=== PATIENT | female | born 1960 | race Caucasian/White ===

== ENCOUNTER 2016-12-08 09:34 | Emergency (ER) | payer OTHER ==
[~2016-12-08] VITALS: Ht 157.5 cm; Wt 59.0 kg
[2016-12-08] MEDS ORDERED: LIDOCAINE VISCOUS 2% 15ML UD PO ONE (10:15)
[2016-12-08] MEDS ORDERED: ALUM & MAG HYDROX-SIMETH LIQ(MAALOX) 30 ML PO ONE (10:15)
[2016-12-08] MEDS ORDERED: DONNATAL 5ml ORAL Elix (BELLADONNA ALK-PHENOBARB) PO ONE (10:15)
[2016-12-08 10:27] VITALS: BP 141/83
[2016-12-08 10:37] LABS: Basophils # (auto) 0.1 uL; Basophils % (auto) 0.8 % (0.0-2.0); Eosinophils # (auto) 0.1 uL; Eosinophils % (auto) 0.5 % (0.0-7.0); Hematocrit 36.5 % (36.0-46.0); Hemoglobin 12.5 g/dL (12.2-16.2); Lymphocytes # (auto) 2.2 uL; Lymphocytes % (auto) 20.5 % (10.0-50.0); Mean Corpuscular Hemoglobin 31.5 pg (28.0-32.0); Mean Corpuscular Hgb Conc. 34.3 g/dL (32.0-36.0); Monocytes # (auto) 0.6 uL; Monocytes % (auto) 5.7 % (0.0-12.0); Neutrophils # (auto) 7.7 uL; Neutrophils % (auto) 72.5 % (37.0-80.0); Nucleated Red Blood Cells % 0.1 %; Platelet Count (auto) 425 10^3/uL (140-450); Red Blood Cells 3.97 10^6/uL (4.0-5.20); Red Cell Distribution Width 14.4 % (11.8-14.3); White Blood Cell 10.6 10^3/uL (4.4-10.8)
[2016-12-08 10:39] LABS: Urine Bacteria NONE SEEN /hpf (None Seen); Urine Blood 1+ /uL (Negative); Urine Mucus FEW (None Seen); Urine Specific Gravity 1.007 (1.001-1.035); Urine WBC 1 /hpf (0 - 5)
[2016-12-08 10:46] LABS: Amylase 33 U/L (25-115); Lipase 46 U/L (73-393)
[2016-12-08 11:06] LABS: Alanine Aminotransferase 22 U/L (13-56); Albumin 3.9 g/dL (3.4-5.0); Alkaline Phosphatase 138 U/L (45-117); Anion Gap 10 (5-15); Aspartate Aminotransferase 16 U/L (15-37); BUN/Creatinine Ratio 9.4; Bilirubin, Total 0.4 mg/dL (0.2-1.0); Blood Urea Nitrogen 6 mg/dL (7-18); Calcium 9.2 mg/dL (8.5-10.1); Carbon Dioxide 22 mmol/L (21-32); Chloride 102 mmol/L (98-107); GFR African American 123 mL/min; GFR Non-African American 102 mL/min; Glucose 127 mg/dL (74-106); Magnesium 2.1 mg/dL (1.6-2.6); Potassium 3.4 mmol/L (3.5-5.1); Sodium 134 mmol/L (136-145); Total Protein 8.3 g/dL (6.4-8.2)
[2016-12-08] MEDS ORDERED: POTASSIUM CHL 10% (20 MEQ/15ML) 15ml ORAL SOLN PO ONE (11:30)
== END 2016-12-08 14:16 | disposition home or self-care (01) ==
LOC: ER 09:34
DX: K29.70 Gastritis, unspecified, without bleeding (principal); K21.9 Gastro-esophageal reflux disease without esophagitis; E11.9 Type 2 diabetes mellitus without complications; Z87.442 Personal history of urinary calculi
CPT/HCPCS: 36415; 80053; 81001; 82150; 83690; 83735; 84484; 85025; 93005

== ENCOUNTER 2016-12-19 16:54 | Emergency (ER) | payer OTHER ==
[~2016-12-19] VITALS: Ht 165.1 cm; Wt 59.0 kg
[2016-12-19 18:37] LABS: Basophils # (auto) 0.1 uL; Basophils % (auto) 0.6 % (0.0-2.0); Eosinophils # (auto) 0 uL; Eosinophils % (auto) 0.3 % (0.0-7.0); Hematocrit 34.6 % (36.0-46.0); Hemoglobin 11.7 g/dL (12.2-16.2); Lymphocytes # (auto) 2.2 uL; Lymphocytes % (auto) 15.9 % (10.0-50.0); Mean Corpuscular Hemoglobin 31.5 pg (28.0-32.0); Mean Corpuscular Volume 92.6 fL (80.0-100.0); Mean Platelet Volume 8.3 fL (6.9-10.8); Monocytes % (auto) 7.2 % (0.0-12.0); Neutrophils # (auto) 10.5 uL; Platelet Count (auto) 428 10^3/uL (140-450); Red Cell Distribution Width 14.4 % (11.8-14.3); White Blood Cell 13.9 10^3/uL (4.4-10.8)
[2016-12-19 18:42] LABS: Albumin 3.6 g/dL (3.4-5.0); BUN/Creatinine Ratio 16.5; Bilirubin, Total 2.5 mg/dL (0.2-1.0); Calcium 9.4 mg/dL (8.5-10.1); Potassium 4.1 mmol/L (3.5-5.1); Total Protein 7.8 g/dL (6.4-8.2)
[2016-12-19] MEDS ORDERED: HYDROmorphone HCL 2 MG/ML VL IV ONE (20:00)
[2016-12-19] MEDS ORDERED: ONDANSETRON HCL 4 MG/2 ML VIAL IV ONE (20:00)
[2016-12-19 21:23] VITALS: BP 110/62
[2016-12-19 22:02] LABS: Amylase 16 U/L (25-115)
== END 2016-12-19 21:31 | disposition home or self-care (01) ==
LOC: EDBD 16:54 → ER 16:54
DX: R94.5 Abnormal results of liver function studies (principal); K86.9 Disease of pancreas, unspecified; E11.9 Type 2 diabetes mellitus without complications; K21.9 Gastro-esophageal reflux disease without esophagitis; E07.89 Other specified disorders of thyroid; Z87.442 Personal history of urinary calculi
CPT/HCPCS: 36415; 71020; 74176; 80053; 82150; 83690; 84484; 85025; 93005; 96374; 96375; 99285; J1170; J2405